=== PATIENT | male | born 1950 | race Caucasian/White ===

== ENCOUNTER 2021-06-30 22:12 | Emergency (ER) | payer OTHER ==
[2021-06-30 22:30] VITALS: BMI 30.9
[2021-06-30 23:55] LABS: BASO % 0.4 % (0-2.0); EOS % 1.9 % (0-4.5); HEMATOCRIT 37.6 % (35.4-49); HEMOGLOBIN 12.9 GM/dL (11.7-16.9); LYMPH % 9.8 % (8-40); MCH 32.2 pg (25.7-33.7); MCHC 34.4 g/dl (32.0-35.9); MEAN CELL VOLUME 93.5 fl (80-96); MEAN PLT VOLUME 10.3 fl (7.5-11.1); MONO % 13.5 % (3.8-10.2); NEUT % 74.4 % (42.8-82.8); PLATELET COUNT 165 10^3/uL (134-434); RBC 4.02 M/mm3 (4.00-5.60); RDW 13.5 % (11.9-15.9); WHITE BLOOD COUNT 6.8 K/mm3 (4.0-10.0)
[2021-07-01 00:15] LABS: INR 1.29 (0.83-1.09); PROTHROMBIN TIME (PATIENT) 15.1 SEC (9.7-13.0)
[2021-07-01 00:18] LABS: CHLORIDE 104 mmol/L (98-107); SODIUM 138 mmol/L (136-145)
[2021-07-01 00:20] LABS: ALBUMIN 3.3 g/dl (3.4-5.0); CALCIUM 8.5 mg/dL (8.5-10.1)
[2021-07-01 00:21] LABS: ANION GAP 6 MMOL/L (8-16); BLOOD UREA NITROGEN 26.2 mg/dL (7-18); CO2 28 mmol/L (21-32); GLUCOSE,RANDOM 278 mg/dL (74-106)
[2021-07-01 00:24] LABS: CREATININE 1.6 mg/dL (0.55-1.3); SGOT/AST 20 U/L (15-37)
[2021-07-01 00:26] LABS: BILIRUBIN,TOTAL 0.4 mg/dL (0.2-1); TOT PROT 6.9 g/dl (6.4-8.2)
[2021-07-01 00:27] LABS: ALK PHOS 115 U/L (45-117)
[2021-07-01] MEDS ORDERED: SODIUM CHLORIDE 0.9% 500 ML INFUS.BAG IV ONE (00:31)
[2021-07-01 00:36] LABS: SGPT/ALT 42 U/L (13-61)
[2021-07-01 04:11] VITALS: BP 135/76; PULSE 82; TEMP 98.3
== END 2021-07-01 04:11 | disposition home or self-care (01) ==
LOC: JER 22:12
DX: R05.9 Cough, unspecified (principal)
CPT/HCPCS: 36415; 80053; 82550; 84484; 85025; 85610; 99284-25

== ENCOUNTER 2022-01-02 03:36 | Emergency (ER) | payer OTHER ==
[2022-01-02 03:47] VITALS: BP 114/65; PULSE 62; TEMP 97.6; BMI 26.7
[2022-01-02] MEDS ORDERED: ACETAMINOPHEN 500 MG TABLET (FP) PO ONE (04:36)
[2022-01-02] MEDS ORDERED: LIDOCAINE 5% TOPICAL PATCH TP ONE (04:39)
[2022-01-02] MEDS ORDERED: ACETAMINOPHEN 325 MG TABLET (FP) ONE (04:45)
[2022-01-02] MEDS ORDERED: LIDOCAINE 5% TOPICAL PATCH ONE (04:46)
[2022-01-02] MEDS ORDERED: LIDOCAINE PATCH REMOVAL MC ONE (17:00)
== END 2022-01-02 05:43 | disposition home or self-care (01) ==
LOC: JER 03:36
DX: S16.1XXA Strain of muscle, fascia and tendon at neck level, initial encounter (principal); X50.0XXA Overexertion from strenuous movement or load, initial encounter
CPT/HCPCS: 93005; 93010; 99283-25

== ENCOUNTER 2022-01-17 09:56 | Inpatient (IN) | payer OTHER ==
[2022-01-17 12:03] LABS: BASO % 0.4 % (0-2.0); EOS % 1.7 % (0-4.5); HEMATOCRIT 37.9 % (35.4-49); HEMOGLOBIN 12.9 GM/dL (11.7-16.9); LYMPH % 11.5 % (8-40); MCH 31.7 pg (25.7-33.7); MEAN CELL VOLUME 93.3 fl (80-96); MEAN PLT VOLUME 8.7 fl (7.5-11.1); MONO % 7.2 % (3.8-10.2); NEUT % 79.2 % (42.8-82.8); PLATELET COUNT 253 10^3/uL (134-434); RBC 4.06 M/mm3 (4.00-5.60); RDW 12.9 % (11.9-15.9)
[2022-01-17 12:09] LABS: INR 1.58 (0.83-1.09); PROTHROMBIN TIME (PATIENT) 18.3 SEC (9.7-13.0)
[2022-01-17 12:12] LABS: ACTIVATED PTT 34.9 SECONDS (25.2-36.5)
[2022-01-17] MEDS ORDERED: VANCOMYCIN 1 GM in D5W (PRE-DOCKED) 1,000 MG/250 ML IVPB ONE (12:22)
[2022-01-17 12:23] LABS: ALBUMIN 3.9 g/dl (3.4-5.0); CALCIUM 9.6 mg/dL (8.5-10.1)
[2022-01-17] MEDS ORDERED: PIPERACILLIN/TAZOB 3.375 GM 3.375 GM in DEXTROSE 5%-WATER - 50 ML IVPB ONE (12:23)
[2022-01-17 12:24] LABS: BLOOD UREA NITROGEN 32.6 mg/dL (7-18)
[2022-01-17 12:26] LABS: CREATININE 1.9 mg/dL (0.55-1.3)
[2022-01-17 12:28] LABS: BILIRUBIN,TOTAL 0.5 mg/dL (0.2-1); TOT PROT 7.7 g/dl (6.4-8.2)
[2022-01-17] MEDS ORDERED: PIPERACILLIN/TAZOB 3.375 GM 3.375 GM/50 ML BAG IVPB ONE (13:07)
[2022-01-17] MEDS ORDERED: HEPARIN NA (PORCINE) 5,000 UNITS/ML 1ML VIAL SQ SCH (22:00)
[2022-01-18] MEDS ORDERED: ATORVASTATIN CA 10 MG TABLET (FP) ONE (00:32)
[2022-01-18] MEDS ORDERED: APIXABAN 5 MG TABLET ONE (00:32)
[2022-01-18] MEDS ORDERED: METOPROLOL TARTRATE 50 MG TABLET (FP) ONE (00:32)
[2022-01-18] MEDS ORDERED: CEFEPIME 1 GM/100 ML BAG IVPB ONE (00:33)
[2022-01-18] MEDS: METOPROLOL TARTRATE 50 MG TABLET (FP) PO SCH ×3 (00:45→21:28)
[2022-01-18] MEDS: APIXABAN 5 MG TABLET PO SCH ×3 (00:45→21:27)
[2022-01-18] MEDS: INSULIN SLIDING SCALE (NOVOLOG) 1 VIAL SQ SCH ×5 (00:45→21:35)
[2022-01-18] MEDS: ATORVASTATIN CA 10 MG TABLET (FP) PO SCH ×2 (00:45→21:28)
[2022-01-18] MEDS: CEFEPIME 1 GM in DEXTROSE 5%-WATER 1 GM/100 ML BAG IVPB SCH ×2 (00:45→09:19)
[2022-01-18 04:11] VITALS: BMI 28.3
[2022-01-18] MEDS ORDERED: CEFEPIME HCL 1 GM VIAL (RESTRICTED TO ID) ONE (09:14)
[2022-01-18] MEDS ORDERED: DEXTROSE 5%-WATER 100 ML IVPB ONE (09:14)
[2022-01-18] MEDS: TAMSULOSIN HCL 0.4 MG CAP PO SCH (09:20)
[2022-01-18] MEDS: PANTOPRAZOLE 20 MG TABLET PO SCH (09:20)
[2022-01-18] MEDS: ASPIRIN COATED 81 MG TABLET.EC PO SCH (09:20)
[2022-01-18] MEDS: amLODIPine BESYLATE 5 MG TABLET (FP) PO SCH (09:20)
[2022-01-18] MEDS: SOLIFENACIN SUCCINATE 5 MG TAB PO SCH (09:20)
[2022-01-18 10:41] LABS: HEMATOCRIT 38.4 % (35.4-49); HEMOGLOBIN 13.2 GM/dL (11.7-16.9); MCHC 34.4 g/dl (32.0-35.9); MEAN CELL VOLUME 93.2 fl (80-96); MEAN PLT VOLUME 9.4 fl (7.5-11.1); PLATELET COUNT 243 10^3/uL (134-434); RBC 4.11 M/mm3 (4.00-5.60); RDW 12.9 % (11.9-15.9); WHITE BLOOD COUNT 9.3 K/mm3 (4.0-10.0)
[2022-01-18 11:05] LABS: CALCIUM 9.2 mg/dL (8.5-10.1)
[2022-01-18 11:08] LABS: CREATININE 1.7 mg/dL (0.55-1.3)
[2022-01-18] MEDS ORDERED: INSULIN (NOVOLOG) ASPART 100 UNITS/ML 10ML VIAL ONE ×2 (11:46→17:12)
[2022-01-18] MEDS ORDERED: VANCOMYCIN 1 GRAM (PRE-DOCKED) 1,000 MG/250 ML BAG IVPB ONE (19:30)
[2022-01-18] MEDS ORDERED: PIPERACILLIN/TAZOBACTAM 2.25 GM VIAL IVPB ONE (20:24)
[2022-01-18] MEDS ORDERED: DEXTROSE 5%-WATER - 50 ML IVPB ONE (20:25)
[2022-01-18] MEDS: PIPERACILLIN/TAZOB 2.25 GM 2.25 GM in DEXTROSE 5%-WATER - 50 ML IVPB SCH (20:31)
[2022-01-18] MEDS: LATANOPROST 0.005% OPHTH SOLN 2.5ML BOTTLE OU SCH (22:33)
[2022-01-19] MEDS ORDERED: DEXTROSE 5%-WATER - 50 ML IVPB ONE ×3 (01:30→17:29)
[2022-01-19] MEDS ORDERED: PIPERACILLIN/TAZOBACTAM 2.25 GM VIAL IVPB ONE ×3 (01:30→17:29)
[2022-01-19] MEDS: PIPERACILLIN/TAZOB 2.25 GM 2.25 GM in DEXTROSE 5%-WATER - 50 ML IVPB SCH ×3 (01:42→17:38)
[2022-01-19] MEDS: INSULIN SLIDING SCALE (NOVOLOG) 1 VIAL SQ SCH ×4 (06:20→21:49)
[2022-01-19] MEDS: TAMSULOSIN HCL 0.4 MG CAP PO SCH (08:24)
[2022-01-19] MEDS: SOLIFENACIN SUCCINATE 5 MG TAB PO SCH (09:49)
[2022-01-19] MEDS: ASPIRIN COATED 81 MG TABLET.EC PO SCH (09:49)
[2022-01-19] MEDS: APIXABAN 5 MG TABLET PO SCH ×2 (09:49→21:47)
[2022-01-19] MEDS: METOPROLOL TARTRATE 50 MG TABLET (FP) PO SCH ×2 (09:49→21:47)
[2022-01-19] MEDS: PANTOPRAZOLE 20 MG TABLET PO SCH (09:49)
[2022-01-19] MEDS: amLODIPine BESYLATE 5 MG TABLET (FP) PO SCH (09:49)
[2022-01-19] MEDS ORDERED: VANCOMYCIN 1 GRAM (PRE-DOCKED) 1,000 MG/250 ML BAG IVPB ONE (18:00)
[2022-01-19] MEDS ORDERED: INSULIN (NOVOLOG) ASPART 100 UNITS/ML 10ML VIAL ONE (21:20)
[2022-01-19] MEDS: LATANOPROST 0.005% OPHTH SOLN 2.5ML BOTTLE OU SCH (21:45)
[2022-01-19] MEDS: ATORVASTATIN CA 10 MG TABLET (FP) PO SCH (21:47)
[2022-01-20] MEDS: PIPERACILLIN/TAZOB 2.25 GM 2.25 GM in DEXTROSE 5%-WATER - 50 ML IVPB SCH ×3 (03:00→18:28)
[2022-01-20] MEDS ORDERED: PIPERACILLIN/TAZOBACTAM 2.25 GM VIAL IVPB ONE ×3 (03:02→16:43)
[2022-01-20] MEDS ORDERED: DEXTROSE 5%-WATER - 50 ML IVPB ONE ×3 (03:02→16:43)
[2022-01-20] MEDS: INSULIN SLIDING SCALE (NOVOLOG) 1 VIAL SQ SCH ×4 (06:42→22:17)
[2022-01-20] MEDS: APIXABAN 5 MG TABLET PO SCH ×2 (09:53→22:17)
[2022-01-20] MEDS: PANTOPRAZOLE 20 MG TABLET PO SCH (09:54)
[2022-01-20] MEDS: amLODIPine BESYLATE 5 MG TABLET (FP) PO SCH (09:54)
[2022-01-20] MEDS: ASPIRIN COATED 81 MG TABLET.EC PO SCH (09:54)
[2022-01-20] MEDS: METOPROLOL TARTRATE 50 MG TABLET (FP) PO SCH ×2 (09:54→22:17)
[2022-01-20] MEDS: SOLIFENACIN SUCCINATE 5 MG TAB PO SCH (09:54)
[2022-01-20] MEDS: TAMSULOSIN HCL 0.4 MG CAP PO SCH (09:56)
[2022-01-20] MEDS: LATANOPROST 0.005% OPHTH SOLN 2.5ML BOTTLE OU SCH ×2 (10:06→22:20)
[2022-01-20] MEDS: CEFEPIME HCL/D5W 1 GM/50 ML BAG IVPB SCH (10:07)
[2022-01-20 10:09] LABS: CALCIUM 8.5 mg/dL (8.5-10.1)
[2022-01-20 10:10] LABS: BLOOD UREA NITROGEN 32.8 mg/dL (7-18)
[2022-01-20 10:13] LABS: CREATININE 1.6 mg/dL (0.55-1.3)
[2022-01-20] MEDS ORDERED: VANCOMYCIN 1 GM in D5W (PRE-DOCKED) 1,000 MG/250 ML IVPB ONE (10:46)
[2022-01-20 11:31] LABS: BASO % 0.8 % (0-2.0); EOS % 3.8 % (0-4.5); HEMATOCRIT 36.9 % (35.4-49); HEMOGLOBIN 12.4 GM/dL (11.7-16.9); LYMPH % 19.7 % (8-40); MCH 31.6 pg (25.7-33.7); MCHC 33.7 g/dl (32.0-35.9); MEAN CELL VOLUME 93.6 fl (80-96); MEAN PLT VOLUME 9.6 fl (7.5-11.1); MONO % 8.1 % (3.8-10.2); NEUT % 67.6 % (42.8-82.8); PLATELET COUNT 238 10^3/uL (134-434); RBC 3.94 M/mm3 (4.00-5.60); RDW 12.9 % (11.9-15.9); WHITE BLOOD COUNT 8.8 K/mm3 (4.0-10.0)
[2022-01-20] MEDS ORDERED: INSULIN (NOVOLOG) ASPART 100 UNITS/ML 10ML VIAL ONE (12:21)
[2022-01-20] MEDS ORDERED: VANCOMYCIN 1 GM/200 ML PREMIX BAG IVPB ONE (12:45)
[2022-01-20] MEDS ORDERED: PANTOPRAZOLE 20 MG TABLET PO ONE (17:39)
[2022-01-20] MEDS: ATORVASTATIN CA 10 MG TABLET (FP) PO SCH (22:17)
[2022-01-21] MEDS ORDERED: PIPERACILLIN/TAZOBACTAM 2.25 GM VIAL IVPB ONE ×3 (01:32→17:18)
[2022-01-21] MEDS ORDERED: DEXTROSE 5%-WATER - 50 ML IVPB ONE ×3 (01:33→17:18)
[2022-01-21] MEDS: PIPERACILLIN/TAZOB 2.25 GM 2.25 GM in DEXTROSE 5%-WATER - 50 ML IVPB SCH ×3 (01:38→17:35)
[2022-01-21] MEDS: INSULIN SLIDING SCALE (NOVOLOG) 1 VIAL SQ SCH ×4 (06:13→21:29)
[2022-01-21] MEDS: TAMSULOSIN HCL 0.4 MG CAP PO SCH (08:16)
[2022-01-21 08:42] LABS: BASO % 0.5 % (0-2.0); EOS % 6.2 % (0-4.5); HEMATOCRIT 37.4 % (35.4-49); HEMOGLOBIN 12.8 GM/dL (11.7-16.9); LYMPH % 18.4 % (8-40); MCH 31.9 pg (25.7-33.7); MCHC 34.2 g/dl (32.0-35.9); MEAN CELL VOLUME 93.4 fl (80-96); MEAN PLT VOLUME 9.2 fl (7.5-11.1); MONO % 8.4 % (3.8-10.2); NEUT % 66.5 % (42.8-82.8); PLATELET COUNT 231 10^3/uL (134-434); RBC 4.01 M/mm3 (4.00-5.60); RDW 12.8 % (11.9-15.9); WHITE BLOOD COUNT 9.4 K/mm3 (4.0-10.0)
[2022-01-21 09:04] LABS: CALCIUM 8.8 mg/dL (8.5-10.1)
[2022-01-21 09:05] LABS: BLOOD UREA NITROGEN 28.8 mg/dL (7-18); MAGNESIUM 2.1 mg/dL (1.8-2.4)
[2022-01-21 09:08] LABS: CREATININE 1.5 mg/dL (0.55-1.3); PHOSPHOROUS 2.1 mg/dL (2.5-4.9)
[2022-01-21 09:13] LABS: N-TERMINAL BNP 313.2 pg/ml (5-125)
[2022-01-21] MEDS ORDERED: SODIUM CHLORIDE 250 ML IV STA (09:15)
[2022-01-21] MEDS: amLODIPine BESYLATE 5 MG TABLET (FP) PO SCH (09:56)
[2022-01-21] MEDS: METOPROLOL TARTRATE 50 MG TABLET (FP) PO SCH ×2 (09:56→21:27)
[2022-01-21] MEDS: SOLIFENACIN SUCCINATE 5 MG TAB PO SCH (09:56)
[2022-01-21] MEDS: ASPIRIN COATED 81 MG TABLET.EC PO SCH (09:56)
[2022-01-21] MEDS: APIXABAN 5 MG TABLET PO SCH ×2 (09:56→21:27)
[2022-01-21] MEDS: PANTOPRAZOLE 40 MG TABLET PO SCH (09:56)
[2022-01-21] MEDS: VANCOMYCIN 1 GM/200 ML PREMIX BAG IVPB ONE ×2 (13:56→14:08)
[2022-01-21] MEDS ORDERED: ACETAMINOPHEN 325 MG TABLET (FP) PO PRN (16:30)
[2022-01-21] MEDS: ATORVASTATIN CA 10 MG TABLET (FP) PO SCH (21:27)
[2022-01-21] MEDS: LATANOPROST 0.005% OPHTH SOLN 2.5ML BOTTLE OU SCH (21:31)
[2022-01-22] MEDS ORDERED: PIPERACILLIN/TAZOBACTAM 2.25 GM VIAL IVPB ONE ×3 (02:50→16:54)
[2022-01-22] MEDS ORDERED: DEXTROSE 5%-WATER - 50 ML IVPB ONE ×3 (02:51→16:54)
[2022-01-22] MEDS: PIPERACILLIN/TAZOB 2.25 GM 2.25 GM in DEXTROSE 5%-WATER - 50 ML IVPB SCH ×3 (03:02→18:47)
[2022-01-22] MEDS: INSULIN SLIDING SCALE (NOVOLOG) 1 VIAL SQ SCH ×4 (07:55→21:42)
[2022-01-22] MEDS: amLODIPine BESYLATE 5 MG TABLET (FP) PO SCH (09:55)
[2022-01-22] MEDS: PANTOPRAZOLE 40 MG TABLET PO SCH (09:55)
[2022-01-22] MEDS: SOLIFENACIN SUCCINATE 5 MG TAB PO SCH (09:56)
[2022-01-22] MEDS: METOPROLOL TARTRATE 50 MG TABLET (FP) PO SCH ×2 (09:56→21:42)
[2022-01-22] MEDS: APIXABAN 5 MG TABLET PO SCH ×2 (09:56→21:42)
[2022-01-22] MEDS: ASPIRIN COATED 81 MG TABLET.EC PO SCH (09:56)
[2022-01-22] MEDS: TAMSULOSIN HCL 0.4 MG CAP PO SCH (09:56)
[2022-01-22 10:21] LABS: BASO % 0.6 % (0-2.0); HEMOGLOBIN 13.1 GM/dL (11.7-16.9); LYMPH % 15.5 % (8-40); MCH 31.6 pg (25.7-33.7); MCHC 33.6 g/dl (32.0-35.9); MEAN PLT VOLUME 9.9 fl (7.5-11.1); MONO % 6.9 % (3.8-10.2); PLATELET COUNT 261 10^3/uL (134-434); RBC 4.15 M/mm3 (4.00-5.60); RDW 13.2 % (11.9-15.9); WHITE BLOOD COUNT 10.1 K/mm3 (4.0-10.0)
[2022-01-22 10:43] LABS: BLOOD UREA NITROGEN 24.6 mg/dL (7-18)
[2022-01-22 10:46] LABS: CREATININE 1.5 mg/dL (0.55-1.3)
[2022-01-22] MEDS: VANCOMYCIN/WATER FOR INJ (PEG) 1,000 MG/200 ML BAG IVPB SCH (13:42)
[2022-01-22] MEDS: ATORVASTATIN CA 10 MG TABLET (FP) PO SCH (21:42)
[2022-01-22] MEDS: LATANOPROST 0.005% OPHTH SOLN 2.5ML BOTTLE OU SCH (21:43)
[2022-01-23] MEDS ORDERED: PIPERACILLIN/TAZOBACTAM 2.25 GM VIAL IVPB ONE ×3 (01:46→16:34)
[2022-01-23] MEDS ORDERED: DEXTROSE 5%-WATER - 50 ML IVPB ONE ×3 (01:46→16:34)
[2022-01-23] MEDS: PIPERACILLIN/TAZOB 2.25 GM 2.25 GM in DEXTROSE 5%-WATER - 50 ML IVPB SCH ×3 (02:25→18:30)
[2022-01-23] MEDS: INSULIN SLIDING SCALE (NOVOLOG) 1 VIAL SQ SCH ×4 (06:43→21:26)
[2022-01-23] MEDS: amLODIPine BESYLATE 5 MG TABLET (FP) PO SCH (09:13)
[2022-01-23] MEDS: SOLIFENACIN SUCCINATE 5 MG TAB PO SCH (09:13)
[2022-01-23] MEDS: METOPROLOL TARTRATE 50 MG TABLET (FP) PO SCH ×2 (09:13→21:26)
[2022-01-23] MEDS: PANTOPRAZOLE 40 MG TABLET PO SCH (09:13)
[2022-01-23] MEDS: TAMSULOSIN HCL 0.4 MG CAP PO SCH (09:13)
[2022-01-23] MEDS: APIXABAN 5 MG TABLET PO SCH ×2 (09:13→21:26)
[2022-01-23] MEDS: ASPIRIN COATED 81 MG TABLET.EC PO SCH (09:14)
[2022-01-23 09:47] LABS: CALCIUM 9.5 mg/dL (8.5-10.1)
[2022-01-23 09:48] LABS: BLOOD UREA NITROGEN 29.6 mg/dL (7-18); MAGNESIUM 1.9 mg/dL (1.8-2.4)
[2022-01-23 09:50] LABS: BASO % 0.5 % (0-2.0); EOS % 4.8 % (0-4.5); HEMOGLOBIN 12.8 GM/dL (11.7-16.9); LYMPH % 19.6 % (8-40); MCH 31.7 pg (25.7-33.7); MCHC 33.7 g/dl (32.0-35.9); MEAN CELL VOLUME 94.1 fl (80-96); MEAN PLT VOLUME 9.8 fl (7.5-11.1); MONO % 9.4 % (3.8-10.2); NEUT % 65.7 % (42.8-82.8); PLATELET COUNT 253 10^3/uL (134-434); RBC 4.04 M/mm3 (4.00-5.60); WHITE BLOOD COUNT 9.2 K/mm3 (4.0-10.0)
[2022-01-23 09:51] LABS: CREATININE 1.5 mg/dL (0.55-1.3); PHOSPHOROUS 2.2 mg/dL (2.5-4.9)
[2022-01-23 11:55] LABS: ERYTHROCYTE SEDIMENTATION RATE 16 mm/hr (0-20)
[2022-01-23] MEDS ORDERED: SODIUM PHOSPHATE - 30 MM in SODIUM CHLORIDE 500 ML IVPB ONE (12:30)
[2022-01-23] MEDS: VANCOMYCIN/WATER FOR INJ (PEG) 1,000 MG/200 ML BAG IVPB SCH (14:36)
[2022-01-23] MEDS: ATORVASTATIN CA 10 MG TABLET (FP) PO SCH (21:26)
[2022-01-23] MEDS: LATANOPROST 0.005% OPHTH SOLN 2.5ML BOTTLE OU SCH (21:27)
[2022-01-24] MEDS ORDERED: DEXTROSE 5%-WATER - 50 ML IVPB ONE ×3 (01:28→17:14)
[2022-01-24] MEDS ORDERED: PIPERACILLIN/TAZOBACTAM 2.25 GM VIAL IVPB ONE ×3 (01:28→17:14)
[2022-01-24] MEDS: PIPERACILLIN/TAZOB 2.25 GM 2.25 GM in DEXTROSE 5%-WATER - 50 ML IVPB SCH ×3 (02:02→17:20)
[2022-01-24] MEDS: INSULIN SLIDING SCALE (NOVOLOG) 1 VIAL SQ SCH ×4 (06:24→21:49)
[2022-01-24] MEDS: TAMSULOSIN HCL 0.4 MG CAP PO SCH (08:45)
[2022-01-24 09:14] LABS: BASO % 0.4 % (0-2.0); EOS % 4.4 % (0-4.5); HEMATOCRIT 34.9 % (35.4-49); HEMOGLOBIN 11.9 GM/dL (11.7-16.9); LYMPH % 22.4 % (8-40); MCH 31.9 pg (25.7-33.7); MCHC 34.2 g/dl (32.0-35.9); MEAN CELL VOLUME 93.4 fl (80-96); MEAN PLT VOLUME 9.8 fl (7.5-11.1); MONO % 9.2 % (3.8-10.2); NEUT % 63.6 % (42.8-82.8); PLATELET COUNT 229 10^3/uL (134-434); RBC 3.74 M/mm3 (4.00-5.60); RDW 13.2 % (11.9-15.9); WHITE BLOOD COUNT 8.4 K/mm3 (4.0-10.0)
[2022-01-24 09:34] LABS: BLOOD UREA NITROGEN 30.1 mg/dL (7-18); CALCIUM 9.1 mg/dL (8.5-10.1); MAGNESIUM 1.9 mg/dL (1.8-2.4)
[2022-01-24 09:36] LABS: PHOSPHOROUS 3.4 mg/dL (2.5-4.9)
[2022-01-24 09:37] LABS: CREATININE 1.6 mg/dL (0.55-1.3)
[2022-01-24] MEDS: amLODIPine BESYLATE 5 MG TABLET (FP) PO SCH (09:38)
[2022-01-24] MEDS: APIXABAN 5 MG TABLET PO SCH ×2 (09:39→21:43)
[2022-01-24] MEDS: ASPIRIN COATED 81 MG TABLET.EC PO SCH (09:39)
[2022-01-24] MEDS: SOLIFENACIN SUCCINATE 5 MG TAB PO SCH (09:39)
[2022-01-24] MEDS: METOPROLOL TARTRATE 50 MG TABLET (FP) PO SCH ×2 (09:39→21:43)
[2022-01-24] MEDS: PANTOPRAZOLE 40 MG TABLET PO SCH (09:39)
[2022-01-24] MEDS: VANCOMYCIN/WATER FOR INJ (PEG) 1,000 MG/200 ML BAG IVPB SCH (13:32)
[2022-01-24] MEDS: MAG HYDROX/AL HYDROX/SIMETH 30 ML UNIT-DOSE CUP PO PRN ×2 (13:48→21:49)
[2022-01-24] MEDS: ATORVASTATIN CA 10 MG TABLET (FP) PO SCH (21:43)
[2022-01-24] MEDS: LATANOPROST 0.005% OPHTH SOLN 2.5ML BOTTLE OU SCH (21:43)
[2022-01-25] MEDS ORDERED: PIPERACILLIN/TAZOBACTAM 2.25 GM VIAL IVPB ONE ×3 (01:37→17:35)
[2022-01-25] MEDS ORDERED: DEXTROSE 5%-WATER - 50 ML IVPB ONE ×3 (01:37→17:35)
[2022-01-25] MEDS: PIPERACILLIN/TAZOB 2.25 GM 2.25 GM in DEXTROSE 5%-WATER - 50 ML IVPB SCH ×3 (01:53→18:51)
[2022-01-25] MEDS: INSULIN SLIDING SCALE (NOVOLOG) 1 VIAL SQ SCH ×4 (06:08→21:24)
[2022-01-25] MEDS: TAMSULOSIN HCL 0.4 MG CAP PO SCH (09:49)
[2022-01-25] MEDS: SOLIFENACIN SUCCINATE 5 MG TAB PO SCH (09:49)
[2022-01-25] MEDS: amLODIPine BESYLATE 5 MG TABLET (FP) PO SCH (09:49)
[2022-01-25] MEDS: ASPIRIN COATED 81 MG TABLET.EC PO SCH (09:49)
[2022-01-25] MEDS: APIXABAN 5 MG TABLET PO SCH ×2 (09:49→21:23)
[2022-01-25] MEDS: METOPROLOL TARTRATE 50 MG TABLET (FP) PO SCH ×2 (09:49→21:24)
[2022-01-25] MEDS: PANTOPRAZOLE 40 MG TABLET PO SCH (09:49)
[2022-01-25] MEDS: VANCOMYCIN/WATER FOR INJ (PEG) 1,000 MG/200 ML BAG IVPB SCH (14:07)
[2022-01-25] MEDS: ATORVASTATIN CA 10 MG TABLET (FP) PO SCH (21:23)
[2022-01-25] MEDS: LATANOPROST 0.005% OPHTH SOLN 2.5ML BOTTLE OU SCH (21:28)
[2022-01-26] MEDS: INSULIN SLIDING SCALE (NOVOLOG) 1 VIAL SQ SCH ×4 (06:06→21:48)
[2022-01-26] MEDS: SOLIFENACIN SUCCINATE 5 MG TAB PO SCH (09:11)
[2022-01-26] MEDS: amLODIPine BESYLATE 5 MG TABLET (FP) PO SCH (09:11)
[2022-01-26] MEDS: TAMSULOSIN HCL 0.4 MG CAP PO SCH (09:11)
[2022-01-26] MEDS: METOPROLOL TARTRATE 50 MG TABLET (FP) PO SCH ×2 (09:11→21:48)
[2022-01-26] MEDS: ASPIRIN COATED 81 MG TABLET.EC PO SCH (09:11)
[2022-01-26] MEDS: APIXABAN 5 MG TABLET PO SCH ×2 (09:11→21:48)
[2022-01-26] MEDS: PANTOPRAZOLE 40 MG TABLET PO SCH (09:11)
[2022-01-26] MEDS: VANCOMYCIN/WATER FOR INJ (PEG) 1,000 MG/200 ML BAG IVPB SCH (13:06)
[2022-01-26 14:48] VITALS: RESP 18
[2022-01-26] MEDS: ATORVASTATIN CA 10 MG TABLET (FP) PO SCH (21:48)
[2022-01-26] MEDS ORDERED: INSULIN (NOVOLOG) ASPART 100 UNITS/ML 10ML VIAL ONE (21:51)
[2022-01-26] MEDS: LATANOPROST 0.005% OPHTH SOLN 2.5ML BOTTLE OU SCH (23:47)
[2022-01-27] MEDS: INSULIN SLIDING SCALE (NOVOLOG) 1 VIAL SQ SCH ×2 (06:23→11:35)
[2022-01-27] MEDS: TAMSULOSIN HCL 0.4 MG CAP PO SCH (09:03)
[2022-01-27] MEDS: APIXABAN 5 MG TABLET PO SCH (09:03)
[2022-01-27] MEDS: ASPIRIN COATED 81 MG TABLET.EC PO SCH (09:03)
[2022-01-27] MEDS: METOPROLOL TARTRATE 50 MG TABLET (FP) PO SCH (09:03)
[2022-01-27] MEDS: amLODIPine BESYLATE 5 MG TABLET (FP) PO SCH (09:04)
[2022-01-27] MEDS: PANTOPRAZOLE 40 MG TABLET PO SCH (09:04)
[2022-01-27] MEDS: SOLIFENACIN SUCCINATE 5 MG TAB PO SCH (09:04)
[2022-01-27 11:54] VITALS: TEMP 98.6
[2022-01-27] MEDS: MAG HYDROX/AL HYDROX/SIMETH 30 ML UNIT-DOSE CUP PO PRN (13:35)
[2022-01-27] MEDS: VANCOMYCIN/WATER FOR INJ (PEG) 1,000 MG/200 ML BAG IVPB SCH (14:08)
[2022-01-27 15:20] VITALS: BP 140/70; PULSE 68
== END 2022-01-27 16:21 | DRG 300 ==
LOC: JER 09:56 → JERBED 12:13 → J8W 01-18 03:42
PROVIDERS: ADMIT Internal Medicine
PROC: 02HV33Z Insertion of Infusion Device into Superior Vena Cava, Percutaneous Approach (ICD-10-PCS; principal; 2022-01-27)
PROC: B548ZZA Ultrasonography of Superior Vena Cava, Guidance (ICD-10-PCS; 2022-01-27)
DX: E11.51 Type 2 diabetes mellitus with diabetic peripheral angiopathy without gangrene (principal); M86.672 Other chronic osteomyelitis, left ankle and foot; E78.5 Hyperlipidemia, unspecified; Z79.84 Long term (current) use of oral hypoglycemic drugs; E11.621 Type 2 diabetes mellitus with foot ulcer; L97.529 Non-pressure chronic ulcer of other part of left foot with unspecified severity; Z86.73 Personal history of transient ischemic attack (TIA), and cerebral infarction without residual deficits; N40.0 Benign prostatic hyperplasia without lower urinary tract symptoms; E11.22 Type 2 diabetes mellitus with diabetic chronic kidney disease; I12.9 Hypertensive chronic kidney disease with stage 1 through stage 4 chronic kidney disease, or unspecified chronic kidney disease; N18.9 Chronic kidney disease, unspecified; L03.032 Cellulitis of left toe; E11.69 Type 2 diabetes mellitus with other specified complication; I25.10 Atherosclerotic heart disease of native coronary artery without angina pectoris; E11.42 Type 2 diabetes mellitus with diabetic polyneuropathy
CPT/HCPCS: 36415; 36558; 73630-TC-LT; 73719-LT; 77001-TC-FY; 80048; 80053; 80061; 82962; 83036; 83605; 83735; 83880; 84100; 84443; 85025; 85027; 85610; 85651; 85730; 86140; 87040; 93005; 93010; 93306-TC; 93971-TC; 97116-GP; 97161-GP; 99285-25; C1751; C9803-CS; G0480; U0003; U0005